=== PATIENT | female | born 1990 | race Caucasian/White ===

== ENCOUNTER 2020-11-14 13:44 | Emergency (ER) | payer BC, OTHER ==
[~2020-11-14] VITALS: Ht 160 cm; Wt 68.0 kg
[~2020-11-14 13:44] MED LIST: PHENERGAN 25 MG25 M1 PO; ZOFRAN ODT4 MG PO
[2020-11-14 15:04] LABS: URINE BILIRUBIN NEGATIVE (Negative); URINE BLOOD NEGATIVE (Negative); URINE CLARITY CLEAR; URINE COLOR YELLOW; URINE GLUCOSE-RANDOM* NEGATIVE (Negative); URINE KETONES NEGATIVE (Negative); URINE LEUKOCYTES-REFLEX NEGATIVE (Negative); URINE NITRITE-REFLEX NEGATIVE (Negative); URINE PROTEIN (DIPSTICK) NEGATIVE (Negative); URINE UROBILINOGEN 0.2 E.U./dl (0.2-1.0)
[2020-11-14] MEDS ORDERED: MEDROL DOSPAK21 TA1 PO (15:58)
[2020-11-14] MEDS ORDERED: NORCO7.5 PO (15:58)
[2020-11-14] MEDS ORDERED: VALIUM2 MG PO (15:58)
[2020-11-14 16:27] VITALS: BP 112/69
== END 2020-11-14 16:28 | disposition home or self-care (01) ==
LOC: ER 13:44
PROVIDERS: Emergency Medicine
DX: M54.5 Low back pain (principal); M41.9 Scoliosis, unspecified

== ENCOUNTER → 2020-11-24 | Outpatient (CLI) | payer BC, OTHER ==
[~2020-11-24] MED LIST changes: +MEDROL DOSPAK21 TA1 PO; +NORCO7.5 PO; +VALIUM2 MG PO
== END ==
LOC: MRI 10:59
PROVIDERS: ATTEND Family Medicine
DX: M47.816 Spondylosis without myelopathy or radiculopathy, lumbar region (principal); M48.061 Spinal stenosis, lumbar region without neurogenic claudication; M41.86 Other forms of scoliosis, lumbar region; M51.36 Other intervertebral disc degeneration, lumbar region

== ENCOUNTER → 2020-12-06 | Outpatient (CLI) | payer BC, OTHER ==
[~2020-12-06] VITALS: Ht 160 cm; Wt 68.0 kg
[~2020-12-06] MED LIST changes: +BACLOFEN 10MG T10 MG PO; +IBGARD90 MG PO; +NABUMETONE 500500 M2 PO; +OMEPRAZOLE40 MG PO; +ONDANSETRON ODT4 MG PO; +STOOL SOFTENER100 MG PO; +UBRELVY50 MG PO
[2020-12-06 13:27] VITALS: BP 129/88
--- NOTE | 2020-12-06 13:56 | NUR ---
Pain Clinic Assessment: 1. History of Osteoarthritis: Not Applicable History of Rheumatoid Arthritis: Not Applicable 2. Height: 5 ft. 3 in. 160.0 cm. Weight: 150.0 lb. oz. 68.040 kg. Patient's BMI: 26.6 3. Vital Signs: BP: 129/88 Pulse: 94 Resp: 16 Temp: 02 Sat: 100 ECG Mon: 4. Pain Intensity: 4 5. Fall Risk: Dizziness: N Needs help standing or walking: N Fallen in the last 3 months: N Fall risk comments: 6. Patient on Blood Thinner: None 7. History of Hypertension: N 8. Opioid Therapy greater than 6 weeks: Opiate Contract Signed: 9. Risk Assessment Tool Provided: 3 LOW RISK 10. Functional Assessment Tool: 65/70 11. Recreational Drug Use: Never Drug Type: Tobacco Use: Never Smoker Tobacco Type: Amount or Packs/day: How Many Years: Alcohol Use: No Frequency: Quant:
--- NOTE | 2020-12-07 07:59 | HPC ---
[facility] [place] [address] [place] [address] PAIN MANAGEMENT CONSULTATION Name: SUSHANT URIOSTEGUI Room #: REG [facility].#: [id number] Admission: 12/06/20 Attend Phys: Michael Moscoso DO Discharge: Date of : 89 Report #: [id number] THIS REPORT FOR: cc: Michael Nair James A. DO Johnson, James E. DO ~ DOC #: [id number] DATE OF SERVICE: 12/06/2020 CHIEF COMPLAINT: Low back pain, left buttock pain. HISTORY OF PRESENT ILLNESS: As you know, the patient is a 30-year-old female, reporting acute onset of low back pain, left buttock pain that presented on 11/14/2020. The patient denies any specific injury or trauma that led to symptom development. She states her pain intensified quite quickly to the point where she had to report to the Emergency Department due to the severe back pain and buttock pain. She went to the Emergency Department that day upon the presentation of symptoms. She was evaluated and advised no acute findings. She followed up with her PCP on 11/18/2020. They reviewed x-ray imaging, which was negative. She was given a cortisone injection, muscle relaxants, and hydrocodone at the Emergency Department and was reporting that she was not receiving much in the way of benefit at her followup visit with Dr. Nair. She was sent for MRI imaging. Once the MRI imaging was obtained, the patient was referred to our clinic they showed minimal changes at the L4-L5 and L5-S1 level. The patient indicates today her pain is continuous. She describes the pain as cramping, aching, sharp, and tender. Places current pain score at 4/10, daily average anywhere from 4-10/10, worst pain has been is 10/10. The patient states pain is exacerbated with standing and sitting and improves with lying down. The patient has undergone one session of physical therapy that she will be attending two to three times a week. She has undergone 2 chiropractic treatments for which she will be attending 3 times a week. She has found them to be somewhat helpful. Her pain has reduced to a level of 4/10 from the 10/10 prior. She has been referred to our clinic to discuss the possibility of undergoing interventional treatment options. PAST MEDICAL HISTORY: 1. Irritable bowel syndrome. 2. History of hypoglycemia. PAST SURGICAL HISTORY: Cholecystectomy. SOCIAL HISTORY: The patient is unemployed. 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 She is not receiving workmen's compensation [place] [address] PAIN MANAGEMENT CONSULTATION Name: URIOSTEGUISUSHANT Room #: REG [facility] Maynard#: [id number] Admission: 12/06/20 Attend Phys: Michael Moscoso DO Discharge: Date of : 89 Report #: [id number] obtain disability benefits. She is not in litigation in regards to her pain. She is unaccompanied at today's visit. She does not smoke. She reports she does not partake in IV or illicit drug use, nor does she partake in alcohol use. ALLERGIES: PAROXETINE. CURRENT MEDICATIONS: Ondansetron 4 mg p.r.n., peppermint oil 90 mg b.i.d., Ubrelvy 50 mg once a day, omeprazole 40 mg per day, docusate sodium 100 mg once a day. IMAGING: MRI lumbar spine obtained on 11/24/2020 shows moderate upper lumbar scoliosis. Normal alignment. Mild L4-L5 and L5-S1 disk degenerative changes with posterior annular fissures. Small L5-S1 focal central disk protrusion, no central canal neural foraminal stenosis. Mild lower lumbar facet hypertrophy. PHYSICAL EXAMINATION: VITAL SIGNS: Blood pressure 129/88, pulse 94, respiratory rate 16 and unlabored. The patient IS 100% on room air. Height 5 feet 3 inches tall, weight 150 pounds, BMI calculated 26.6. GENERAL: Well-developed, well-nourished, well-hydrated, scoliotic 30-year-old female, appearing stated age, placing current pain score at 4/10. HEENT: Normocephalic, atraumatic. Pupils equal, round and responsive. The patient deemed a good historian. She is wearing a mask in compliance with COVID-19 regulations. LUNGS: Appear clear. No appreciable wheezes, rhonchi or rales. CARDIOVASCULAR: Regular. No appreciable gallop, no rub. ABDOMEN: Soft, mildly obese, normoactive bowel sounds. EXTREMITIES: Show no clubbing, no cyanosis and no edema. MUSCULOSKELETAL: Lower extremity strength equal and symmetrical 5/5 intact to light touch from L1 through S2 dermatomes. Seated straight leg raising negative. Supine straight leg raising is only positive for low back and left buttock pain. Ankle clonus negative. Babinski is negative. Patellar reflexes and Achilles reflexes 2+/4. Gait is mildly antalgic favoring left lower extremity over right. Stance is noted to be somewhat scoliotic. There is a leg length discrepancy noted in standing pelvic unleveling. ASSESSMENT: 1. Low back pain with left buttock pain. 2. Mild facet arthropathy, lumbar spine. 3. L4-L5, L5-S1 annular fissures. 4. Mild degenerative changes of the lumbar spine. 5. Chronic intractable pain. PLAN: 1. Based on today's physical exam and history the patient has provided, the description the patient uses in regards to pain, as well [place] [address] PAIN MANAGEMENT CONSULTATION Name: SUSHANT URIOSTEGUI Room #: REG [facility].#: [id number] Admission: 12/06/20 Attend Phys: Michael Moscoso DO Discharge: Date of : 89 Report #: [id number] symptoms, it would appear the patient is suffering from chronic low back symptoms secondary to the minor findings at the L4-L5 and L5-S1 levels. We have reviewed with the patient the findings of this MRI. She does report what appear to be lumbar radicular symptoms that have presented spontaneously, though I am pleased to advise the patient the MRI shows only minor changes. We discussed with the patient the treatment options, we have for lumbar radiculopathy to address low back and left buttock and periodic left lower extremity symptoms. Following was discussed with the patient today: We discussed today with the patient the treatment options, which would include physical therapy, stretching exercise, core strengthening and a concerted effort at weight loss. We discussed medication management with suggestions of treatment to use neuropathic pain medications such as amitriptyline, nortriptyline, Cymbalta, Lyrica, or gabapentin. We discussed lumbar epidural injections under fluoroscopic guidance to address radicular pain. We also discussed with the patient the use of a nonsteroidal anti-inflammatory and baclofen for muscle spasming and generalized pain disorder. We also discussed spinal cord stimulator options and surgical options, though I do not feel the patient is a candidate for either of those type of procedures. After reviewing risks and benefits of all proposed treatment options, the patient chose to initiate medication management and begin the process of authorization to undergo lumbar epidural injection under fluoroscopic guidance. 2. The patient was advised that a lumbar epidural injection would require a prior authorization to be completed, we will begin that process immediately. This could take anywhere from 4-7 working days. Once we have this authorization process completed, the patient will be contacted to make a followup appointment for the first in a series of lumbar epidural injections. 3. The patient will be started on nabumetone 500 mg dose 1 tab p.o. t.i.d. We have given the patient #90 tablets. This will help with her axial back pain and inflammatory processes. The patient will watch for dyspepsia, worsening of blood pressure, lower extremity edema with use of the medication. If she notes any side effects, discontinue immediately and call for further instructions. She was given #90 tablets and 2 refills essentially 3 months' worth of medication, if this is effective. 4. The patient was provided a prescription of baclofen 10 mg dose 1 tab p.o. t.i.d. p.r.n. muscle spasms. We have given the patient #90 tablets, 2 refills if this is successful. The patient is advised to utilize the medication only when her pain is related to muscle spasming, not to rely on the medication prophylactically. She will watch for any side effects with use of these medications. She will not drive or operate heavy equipment while on this therapy. 5. We will see the patient back in followup visit once we have achieved authorization for the patient to undergo lumbar epidural injection under fluoroscopic guidance. We are hopeful this will be done quickly and the patient can return to undergo the first in the series. 6. We wish to thank Dr. Nair for the referral of this patient to our [facility] [address] [place] [address] PAIN MANAGEMENT CONSULTATION Name: SUSHANT URIOSTEGUI Room #: REG [facility]ATHI Maynard#: [id number] Admission: 12/06/20 Attend Phys: Michael Moscoso DO Discharge: Date of : 89 Report #: [id number] clinic. We will keep you apprised of response to treatment as we address low back and left buttock pain. Again, we wish to thank you for the opportunity to see this patient in consultation. Michael Moscoso DO JEJ/DHI <ELECTRONICALLY SIGNED> By: Michael Moscoso DO 12/07/20 [id number] Michael Moscoso DO /nt
== END ==
LOC: PAIN 12-04 10:16
PROVIDERS: ATTEND Anesthesiology Pain Medicine
DX: M54.5 Low back pain (principal); M79.10 Myalgia, unspecified site; M51.87 Other intervertebral disc disorders, lumbosacral region; G89.29 Other chronic pain; M47.816 Spondylosis without myelopathy or radiculopathy, lumbar region; Z88.8 Allergy status to other drugs, medicaments and biological substances; Z79.899 Other long term (current) drug therapy